=== PATIENT | male | born 1940 | race Caucasian/White ===

== ENCOUNTER 2021-09-16 08:01 | Inpatient (IN) | payer MEDICARE ==
[2021-09-16] MEDS ORDERED: Ondansetron PF 4 MG/2 ML Vial ONE (08:40)
[2021-09-16 09:46] LABS: Bacteria/HPF None Seen HPF (None Seen); Bilirubin Negative (Negative); Blood, Urine Trace (Negative); Clarity Clear (Clear); Glucose, Urine (Dipstick) Greater than 1000 mg/dL (Negative); Ketone, Urine 20 mg/dL (Negative); Leukocyte Negative Leu/uL (Negative); Nitrite Negative (Negative); Protein, Urine (Dipstick) Negative (Neg-Trace); RBC/HPF 0-3 HPF (0-3); Specific Gravity, Urine 1.015 (1.002-1.036); Squamous Epithelial None Seen HPF (0-3); Urobilinogen Normal mg/dL (Less than 2); WBC/HPF 0-3 HPF (0-3)
[2021-09-16 10:17] LABS: #Lymphocytes 0.7 thou/uL (1.20-3.40); #Monocytes 1.1 thou/uL (0.11-0.59); #Neutrophils 13.7 thou/uL (1.40-6.50); %Basophils 0.3 % (0.0-1.0); %Eosinophils 0.3 % (0.0-10.0); %Lymphocytes 4.4 % (21.0-51.0); %Monocytes 6.9 % (0.0-10.0); %Neutrophils 88.2 % (42.0-75.0); Mean Corpuscular HGB CONC 32.9 g/dL (32.0-36.0); Mean Corpuscular Hemoglobin 32.6 pg (27.0-31.0); Mean Corpuscular Volume 98.8 fL (78.0-98.0); Platelet Count 183 thou/uL (130-400); RBC Distribution Width 11.5 % (11.5-14.5); White Blood Cell (WBC) Count 15.6 thou/uL (4.8-10.8)
[2021-09-16 10:38] LABS: ALT (SGPT) 13 U/L (8-55); AST (SGOT) 16 U/L (5-34); Albumin 3.7 g/dL (3.4-4.8); Alkaline Phosphatase 56 U/L (40-110); Anion Gap 14 mmol/L (10-20); BUN (Urea Nitrogen) 15 mg/dL (8.4-25.7); Bilirubin, Total 0.9 mg/dL (0.2-1.2); CK (CPK) 175 U/L (30-200); Calc. Creatinine Clearance 0 mL/min (70-130); Carbon Dioxide 25 mmol/L (23-31); Chloride 103 mmol/L (98-107); Estimated GFR 77; Globulin 2.9 g/dL (2.4-3.5); Glucose 256 mg/dL (83-110); Lipase 7 U/L (8-78); Potassium 3.5 mmol/L (3.5-5.1); Protein, Total 6.6 g/dL (5.8-8.1); Sodium 138 mmol/L (136-145)
[2021-09-16 10:43] LABS: SARS-CoV-2 NAA Rapid Test DETECTED (NotDetected)
[2021-09-16] MEDS ORDERED: Morphine 4 MG/ML VIAL ONE (12:00)
[2021-09-16] MEDS ORDERED: Cefepime 2 GM VIAL ONE (12:00)
[2021-09-16] MEDS ORDERED: Dextrose 50% Abboject 50 ML SYRINGE SLOW IVP PRN (12:57)
[2021-09-16] MEDS ORDERED: Dextrose 5% in Water 1,000 ML IV PRN (12:57)
[2021-09-16] MEDS ORDERED: Vancomycin 1 GM/200 ML BAG ONE (13:28)
[2021-09-16] MEDS ORDERED: Lactated Ringer's 1,000 ML IV SCH ×3 (13:30→16:30)
[2021-09-16 13:41] LABS: Lactic Acid 2.4 mmol/L (0.5-2.2)
[2021-09-16] MEDS ORDERED: Diclofenac 1% 100 GM GEL TP PRN (13:55)
[2021-09-16 14:31] LABS: Amphetamine Not Detected (NotDetected); Barbiturates Screen Not Detected (NotDetected); Benzodiazepine Screen Not Detected (NotDetected); Cocaine Metabolite Screen Not Detected (NotDetected); Methadone Not Detected (NotDetected); Methamphetamine Not Detected (NotDetected); Opiate Screen Not Detected (NotDetected); Oxycodone Screen Not Detected (NotDetected); Phencyclidine (PCP) Not Detected (NotDetected); THC/Cannabinoid Screen Not Detected (NotDetected); Tricyclic Screen Not Detected (NotDetected)
[2021-09-16 15:09] LABS: Magnesium 1.3 mg/dL (1.6-2.6); Phosphorus 2.1 mg/dL (2.3-4.7)
[2021-09-16 16:29] VITALS: BMI 26.0
[2021-09-16] MEDS: metFORMIN 500 MG TAB PO SCH (17:49)
[2021-09-16] MEDS: HumaLOG 300 UNITS/3 ML VIAL SC PRN ×2 (17:49→20:54)
[2021-09-16] MEDS ORDERED: Magnesium 2 GM/50 ML(in water) 2 GM in Premix Bag 1 BAG IVPB SCH (18:00)
[2021-09-16] MEDS ORDERED: Potassium Phosphate 9 MMOL in Sodium Chloride 0.9% 100 ML IVPB SCH (18:30)
[2021-09-16 19:50] LABS: Lactic Acid 2.6 mmol/L (0.5-2.2)
[2021-09-16] MEDS: Trospium 20 MG TAB PO SCH (20:56)
[2021-09-17 04:52] LABS: #Lymphocytes 1.1 thou/uL (1.20-3.40); #Monocytes 1.3 thou/uL (0.11-0.59); #Neutrophils 11.3 thou/uL (1.40-6.50); %Eosinophils 0.2 % (0.0-10.0); %Monocytes 9.3 % (0.0-10.0); %Neutrophils 82.6 % (42.0-75.0); Hemoglobin 14.8 g/dL (14.0-18.0); Mean Corpuscular HGB CONC 32.4 g/dL (32.0-36.0); Mean Corpuscular Hemoglobin 32.5 pg (27.0-31.0); Mean Platelet Volume 10.6 fL (7.4-10.4); Platelet Count 152 thou/uL (130-400); RBC Distribution Width 11.8 % (11.5-14.5); Red Blood Cell (RBC) Count 4.54 mill/uL (4.70-6.10); White Blood Cell (WBC) Count 13.7 thou/uL (4.8-10.8)
[2021-09-17 05:10] LABS: Anion Gap 15 mmol/L (10-20); BUN (Urea Nitrogen) 11 mg/dL (8.4-25.7); Calc. Creatinine Clearance 84 mL/min (70-130); Calcium 9.1 mg/dL (7.8-10.44); Carbon Dioxide 23 mmol/L (23-31); Chloride 101 mmol/L (98-107); Estimated GFR 86; Glucose 220 mg/dL (83-110); Potassium 3.6 mmol/L (3.5-5.1); Sodium 135 mmol/L (136-145)
[2021-09-17] MEDS: HumaLOG 300 UNITS/3 ML VIAL SC PRN ×4 (05:32→21:00)
[2021-09-17 06:10] LABS: Magnesium 1.8 mg/dL (1.6-2.6); Phosphorus 2.3 mg/dL (2.3-4.7)
[2021-09-17] MEDS ORDERED: Insulin Glargine 30 UNITS/0.3 ML VIAL SC SCH ×2 (07:00→09:00)
[2021-09-17] MEDS: Hydrochlorothiazide 25 MG TAB PO SCH (08:48)
[2021-09-17] MEDS: metFORMIN 500 MG TAB PO SCH ×2 (08:48→16:51)
[2021-09-17] MEDS: Aspirin 81 mg Enteric Coated Tablet PO SCH (08:48)
[2021-09-17] MEDS: Losartan 25 MG TAB PO SCH (08:48)
[2021-09-17] MEDS: Polyethylene Glycol 3350 17 GM Packet PO SCH (08:48)
[2021-09-17] MEDS: Trospium 20 MG TAB PO SCH ×2 (08:48→20:59)
[2021-09-17] MEDS: Atorvastatin Calcium 20 MG TAB PO SCH (08:49)
[2021-09-17] MEDS: Cyanocobalamin (Vitamin B-12) 1,000 MCG TAB PO SCH (08:49)
[2021-09-17] MEDS: Multivit, Therapeutic 1 TAB PO SCH (08:49)
[2021-09-17] MEDS: Enoxaparin Sodium 40 MG/0.4 ML SYRINGE SC SCH (08:50)
[2021-09-17] MEDS: Lactated Ringer's 1,000 ML IV SCH ×5 (09:36→23:16)
[2021-09-17] MEDS: PHOS-NAK 1 PKT PACK PO SCH ×3 (09:36→21:00)
[2021-09-17] MEDS: Magnesium Oxide 400 MG TAB PO SCH ×2 (09:36→20:59)
[2021-09-17] MEDS ORDERED: TETANUS, DIPHTHERIA TOX,ADULT (TDVAX) 0.5 ML VIAL IM ONE (09:54)
[2021-09-17] MEDS ORDERED: Acetaminophen 325 MG/10.15 ML UDCUP PO PRN (10:08)
[2021-09-17] MEDS ORDERED: Amlodipine 10 MG TAB PO SCH (11:18)
[2021-09-17] MEDS ORDERED: hydrALAZINE 20 MG/ML VIAL SLOW IVP PRN (11:54)
[2021-09-17] MEDS ORDERED: hydrALAZINE 20 MG/ML VIAL SLOW IVP SCH (11:55)
[2021-09-18] MEDS: Lactated Ringer's 1,000 ML IV SCH ×4 (05:30→23:27)
[2021-09-18] MEDS: HumaLOG 300 UNITS/3 ML VIAL SC PRN ×4 (05:42→20:03)
[2021-09-18 05:53] LABS: Anion Gap 13 mmol/L (10-20); BUN (Urea Nitrogen) 12 mg/dL (8.4-25.7); Calc. Creatinine Clearance 90 mL/min (70-130); Calcium 8.9 mg/dL (7.8-10.44); Carbon Dioxide 28 mmol/L (23-31); Chloride 97 mmol/L (98-107); Estimated GFR 88; Glucose 199 mg/dL (83-110); Magnesium 1.7 mg/dL (1.6-2.6); Potassium 3.2 mmol/L (3.5-5.1); Sodium 135 mmol/L (136-145)
[2021-09-18 05:54] LABS: #Lymphocytes 1.5 thou/uL (1.20-3.40); #Monocytes 1.1 thou/uL (0.11-0.59); #Neutrophils 8.3 thou/uL (1.40-6.50); %Basophils 0.2 % (0.0-1.0); %Eosinophils 0.2 % (0.0-10.0); %Lymphocytes 13.8 % (21.0-51.0); %Monocytes 10.2 % (0.0-10.0); %Neutrophils 75.6 % (42.0-75.0); Hemoglobin 13.8 g/dL (14.0-18.0); Mean Corpuscular HGB CONC 34.4 g/dL (32.0-36.0); Mean Corpuscular Hemoglobin 33.3 pg (27.0-31.0); Mean Corpuscular Volume 96.7 fL (78.0-98.0); Mean Platelet Volume 9.8 fL (7.4-10.4); Phosphorus 2.9 mg/dL (2.3-4.7); Platelet Count 181 thou/uL (130-400); RBC Distribution Width 11.7 % (11.5-14.5); Red Blood Cell (RBC) Count 4.15 mill/uL (4.70-6.10)
[2021-09-18 05:55] LABS: Lactic Acid 1.5 mmol/L (0.5-2.2)
[2021-09-18] MEDS ORDERED: Amlodipine 10 MG TAB PO SCH ×2 (09:00)
[2021-09-18] MEDS ORDERED: Potassium Chloride 20 MEQ TAB PO SCH (09:00)
[2021-09-18] MEDS ORDERED: Amlodipine 5 MG TAB PO SCH (09:00)
[2021-09-18] MEDS: Magnesium Oxide 400 MG TAB PO SCH ×4 (09:45→20:02)
[2021-09-18] MEDS: Atorvastatin Calcium 20 MG TAB PO SCH (09:45)
[2021-09-18] MEDS: Enoxaparin Sodium 40 MG/0.4 ML SYRINGE SC SCH (09:45)
[2021-09-18] MEDS: PHOS-NAK 1 PKT PACK PO SCH ×3 (09:46→20:01)
[2021-09-18] MEDS: Polyethylene Glycol 3350 17 GM Packet PO SCH (09:46)
[2021-09-18] MEDS: Insulin Glargine 30 UNITS/0.3 ML VIAL SC SCH (09:46)
[2021-09-18] MEDS: metFORMIN 500 MG TAB PO SCH ×2 (09:46→17:00)
[2021-09-18] MEDS: Cyanocobalamin (Vitamin B-12) 1,000 MCG TAB PO SCH (09:47)
[2021-09-18] MEDS: Losartan 25 MG TAB PO SCH (09:47)
[2021-09-18] MEDS: Hydrochlorothiazide 25 MG TAB PO SCH (09:48)
[2021-09-18] MEDS: Aspirin 81 mg Enteric Coated Tablet PO SCH (09:48)
[2021-09-18] MEDS: Amlodipine 10 MG TAB PO SCH (09:48)
[2021-09-18] MEDS: Trospium 20 MG TAB PO SCH ×2 (09:48→20:02)
[2021-09-18] MEDS: Senokot S 8.6-50 MG TAB PO SCH ×2 (09:48→20:02)
[2021-09-18] MEDS: Multivit, Therapeutic 1 TAB PO SCH (09:48)
[2021-09-18] MEDS ORDERED: Melatonin 3 MG TAB PO PRN (23:06)
[2021-09-19 08:56] LABS: #Eosinphils 0.2 thou/uL (0.0-0.7); #Lymphocytes 1.6 thou/uL (1.20-3.40); #Neutrophils 5.3 thou/uL (1.40-6.50); %Basophils 0.4 % (0.0-1.0); %Eosinophils 1.9 % (0.0-10.0); %Lymphocytes 19.7 % (21.0-51.0); %Monocytes 11.9 % (0.0-10.0); %Neutrophils 66.1 % (42.0-75.0); Hemoglobin 13.4 g/dL (14.0-18.0); Mean Corpuscular HGB CONC 32.7 g/dL (32.0-36.0); Mean Corpuscular Hemoglobin 32.6 pg (27.0-31.0); Mean Corpuscular Volume 99.7 fL (78.0-98.0); Mean Platelet Volume 9.4 fL (7.4-10.4); Platelet Count 186 thou/uL (130-400); RBC Distribution Width 11.6 % (11.5-14.5); Red Blood Cell (RBC) Count 4.12 mill/uL (4.70-6.10)
[2021-09-19] MEDS ORDERED: Magnesium Oxide 400 MG TAB PO SCH (09:00)
[2021-09-19] MEDS: Insulin Glargine 30 UNITS/0.3 ML VIAL SC SCH (09:00)
[2021-09-19] MEDS ORDERED: Acetaminophen 325 MG TAB PO SCH (09:00)
[2021-09-19] MEDS ORDERED: Insulin Glargine 30 UNITS/0.3 ML VIAL SC SCH (09:09)
[2021-09-19 09:15] LABS: Magnesium 1.8 mg/dL (1.6-2.6); Phosphorus 3.1 mg/dL (2.3-4.7)
[2021-09-19 09:20] LABS: Anion Gap 13 mmol/L (10-20); BUN (Urea Nitrogen) 18 mg/dL (8.4-25.7); Calc. Creatinine Clearance 93 mL/min (70-130); Calcium 8.9 mg/dL (7.8-10.44); Carbon Dioxide 23 mmol/L (23-31); Chloride 102 mmol/L (98-107); Estimated GFR 88; Glucose 151 mg/dL (83-110); Potassium 3.7 mmol/L (3.5-5.1); Sodium 134 mmol/L (136-145)
[2021-09-19] MEDS: Multivit, Therapeutic 1 TAB PO SCH (09:22)
[2021-09-19] MEDS: Amlodipine 10 MG TAB PO SCH (09:22)
[2021-09-19] MEDS: Trospium 20 MG TAB PO SCH ×2 (09:23→22:22)
[2021-09-19] MEDS: metFORMIN 500 MG TAB PO SCH ×2 (09:23→17:31)
[2021-09-19] MEDS: Losartan 25 MG TAB PO SCH (09:23)
[2021-09-19] MEDS: Hydrochlorothiazide 25 MG TAB PO SCH (09:24)
[2021-09-19] MEDS: Magnesium Oxide 400 MG TAB PO SCH ×4 (09:24→22:22)
[2021-09-19] MEDS: Cyanocobalamin (Vitamin B-12) 1,000 MCG TAB PO SCH (09:24)
[2021-09-19] MEDS: Senokot S 8.6-50 MG TAB PO SCH ×2 (09:24→22:22)
[2021-09-19] MEDS: Aspirin 81 mg Enteric Coated Tablet PO SCH (09:24)
[2021-09-19] MEDS: Atorvastatin Calcium 20 MG TAB PO SCH ×2 (09:25→22:22)
[2021-09-19] MEDS: Polyethylene Glycol 3350 17 GM Packet PO SCH (09:26)
[2021-09-19] MEDS: Enoxaparin Sodium 40 MG/0.4 ML SYRINGE SC SCH ×2 (09:39→09:43)
[2021-09-19] MEDS: HumaLOG 300 UNITS/3 ML VIAL SC PRN (13:25)
[2021-09-19] MEDS: Acetaminophen 325 MG TAB PO PRN (22:34)
[2021-09-20 07:53] LABS: #Basophils 0.1 thou/uL (0.0-0.2); #Eosinphils 0.3 thou/uL (0.0-0.7); #Neutrophils 5.4 thou/uL (1.40-6.50); %Basophils 0.6 % (0.0-1.0); %Eosinophils 3.2 % (0.0-10.0); %Lymphocytes 22.6 % (21.0-51.0); %Monocytes 11.6 % (0.0-10.0); Hemoglobin 13.2 g/dL (14.0-18.0); Mean Corpuscular HGB CONC 33.6 g/dL (32.0-36.0); Mean Corpuscular Hemoglobin 32.9 pg (27.0-31.0); Mean Corpuscular Volume 97.9 fL (78.0-98.0); Mean Platelet Volume 9.3 fL (7.4-10.4); Platelet Count 201 thou/uL (130-400); RBC Distribution Width 11.5 % (11.5-14.5); Red Blood Cell (RBC) Count 4.01 mill/uL (4.70-6.10); White Blood Cell (WBC) Count 8.7 thou/uL (4.8-10.8)
[2021-09-20 08:12] LABS: Anion Gap 12 mmol/L (10-20); BUN (Urea Nitrogen) 22 mg/dL (8.4-25.7); Calc. Creatinine Clearance 83 mL/min (70-130); Calcium 9.1 mg/dL (7.8-10.44); Carbon Dioxide 28 mmol/L (23-31); Chloride 102 mmol/L (98-107); Estimated GFR 86; Glucose 110 mg/dL (83-110); Magnesium 1.8 mg/dL (1.6-2.6); Potassium 3.6 mmol/L (3.5-5.1); Sodium 138 mmol/L (136-145)
[2021-09-20] MEDS: metFORMIN 500 MG TAB PO SCH ×2 (09:44→16:50)
[2021-09-20] MEDS: Amlodipine 10 MG TAB PO SCH (09:44)
[2021-09-20] MEDS: Losartan 25 MG TAB PO SCH (09:44)
[2021-09-20] MEDS: Cyanocobalamin (Vitamin B-12) 1,000 MCG TAB PO SCH (09:45)
[2021-09-20] MEDS: Magnesium Oxide 400 MG TAB PO SCH (09:45)
[2021-09-20] MEDS: Senokot S 8.6-50 MG TAB PO SCH ×2 (09:46→21:30)
[2021-09-20] MEDS: Trospium 20 MG TAB PO SCH ×2 (09:46→21:30)
[2021-09-20] MEDS: Multivit, Therapeutic 1 TAB PO SCH (09:46)
[2021-09-20] MEDS: Enoxaparin Sodium 40 MG/0.4 ML SYRINGE SC SCH (09:47)
[2021-09-20] MEDS: Polyethylene Glycol 3350 17 GM Packet PO SCH (09:47)
[2021-09-20] MEDS: Hydrochlorothiazide 25 MG TAB PO SCH (09:47)
[2021-09-20] MEDS: Aspirin 81 mg Enteric Coated Tablet PO SCH (09:48)
[2021-09-20] MEDS: Atorvastatin Calcium 20 MG TAB PO SCH (21:30)
[2021-09-20] MEDS: HumaLOG 300 UNITS/3 ML VIAL SC PRN (21:30)
[2021-09-21] MEDS: Acetaminophen 325 MG TAB PO PRN (02:18)
[2021-09-21 07:02] LABS: #Eosinphils 0.2 thou/uL (0.0-0.7); #Lymphocytes 1.9 thou/uL (1.20-3.40); #Neutrophils 5.1 thou/uL (1.40-6.50); %Basophils 0.1 % (0.0-1.0); %Eosinophils 2.7 % (0.0-10.0); %Lymphocytes 22.8 % (21.0-51.0); %Neutrophils 62.5 % (42.0-75.0); Hemoglobin 13.4 g/dL (14.0-18.0); Mean Corpuscular HGB CONC 34.5 g/dL (32.0-36.0); Mean Corpuscular Hemoglobin 33.5 pg (27.0-31.0); Mean Corpuscular Volume 97.3 fL (78.0-98.0); Mean Platelet Volume 9.1 fL (7.4-10.4); Platelet Count 214 thou/uL (130-400); RBC Distribution Width 11.5 % (11.5-14.5); White Blood Cell (WBC) Count 8.1 thou/uL (4.8-10.8)
[2021-09-21 07:26] LABS: Anion Gap 12 mmol/L (10-20); BUN (Urea Nitrogen) 20 mg/dL (8.4-25.7); Calc. Creatinine Clearance 68 mL/min (70-130); Calcium 9.3 mg/dL (7.8-10.44); Carbon Dioxide 28 mmol/L (23-31); Chloride 102 mmol/L (98-107); Estimated GFR 68; Glucose 366 mg/dL (83-110); Magnesium 1.8 mg/dL (1.6-2.6); Potassium 3.8 mmol/L (3.5-5.1); Sodium 138 mmol/L (136-145)
[2021-09-21] MEDS ORDERED: Hydrochlorothiazide 25 MG TAB PO SCH (09:00)
[2021-09-21] MEDS ORDERED: Insulin Glargine 30 UNITS/0.3 ML VIAL SC SCH (09:00)
[2021-09-21] MEDS ORDERED: Magnesium Oxide 400 MG TAB PO SCH (09:00)
[2021-09-21] MEDS: Losartan 25 MG TAB PO SCH (09:39)
[2021-09-21] MEDS: metFORMIN 500 MG TAB PO SCH (09:40)
[2021-09-21] MEDS: Trospium 20 MG TAB PO SCH (09:40)
[2021-09-21] MEDS: Senokot S 8.6-50 MG TAB PO SCH (09:41)
[2021-09-21] MEDS: Multivit, Therapeutic 1 TAB PO SCH (09:41)
[2021-09-21] MEDS: Cyanocobalamin (Vitamin B-12) 1,000 MCG TAB PO SCH (09:41)
[2021-09-21] MEDS: Amlodipine 10 MG TAB PO SCH (09:41)
[2021-09-21] MEDS: Aspirin 81 mg Enteric Coated Tablet PO SCH (09:41)
[2021-09-21] MEDS: Enoxaparin Sodium 40 MG/0.4 ML SYRINGE SC SCH (09:42)
[2021-09-21] MEDS: Polyethylene Glycol 3350 17 GM Packet PO SCH (09:42)
[2021-09-21] MEDS ORDERED: Polyethylene Glycol 3350 17 GM Packet PO SCH ×2 (09:59→10:30)
[2021-09-21 11:59] VITALS: TEMP 98
[2021-09-21] MEDS: HumaLOG 300 UNITS/3 ML VIAL SC PRN (12:13)
[2021-09-21 12:26] VITALS: BP 156/102
[2021-09-22] MEDS ORDERED: Polyethylene Glycol 3350 17 GM Packet PO SCH (09:00)
== END 2021-09-21 13:54 | DRG 871 ==
LOC: ERS 08:01 → NEURO 14:22
PROVIDERS: ADMIT Student in an Organized Health Care Education/Training Program; ATTEND Family Medicine
PROC: 8E0ZXY6 Isolation (ICD-10-PCS; principal; 2021-09-16)
PROC: 3E03329 Introduction of Other Anti-infective into Peripheral Vein, Percutaneous Approach (ICD-10-PCS; 2021-09-16)
DX: A41.89 Other specified sepsis (principal); U07.1 COVID-19; S06.0X9A Concussion with loss of consciousness of unspecified duration, initial encounter; E11.9 Type 2 diabetes mellitus without complications; I10 Essential (primary) hypertension; I25.10 Atherosclerotic heart disease of native coronary artery without angina pectoris; N40.0 Benign prostatic hyperplasia without lower urinary tract symptoms; W19.XXXA Unspecified fall, initial encounter; E83.42 Hypomagnesemia; S01.01XA Laceration without foreign body of scalp, initial encounter; F01.50 Vascular dementia, unspecified severity, without behavioral disturbance, psychotic disturbance, mood disturbance, and anxiety; Z88.8 Allergy status to other drugs, medicaments and biological substances; Z88.1 Allergy status to other antibiotic agents; Z79.82 Long term (current) use of aspirin; Z79.899 Other long term (current) drug therapy; Z79.4 Long term (current) use of insulin; Z79.84 Long term (current) use of oral hypoglycemic drugs; Z90.49 Acquired absence of other specified parts of digestive tract
CPT/HCPCS: 12002; 36415; 36416; 70450; 70551; 71045; 72125; 80048; 80053; 80306; 81003; 81015; 82550; 82607; 83605; 83690; 83735; 84100; 84145; 84425; 84443; 84484; 85025; 87040; 90714; 93005; 93306; 96361; 96365; 96367; 96375; J0360; J0692; J1650; J1815; J2270; J2405; J3370; J3475; J3490; J7120; U0002

== ENCOUNTER 2022-03-16 22:06 | Observation (INO) | payer MEDICARE ==
[2022-03-16] MEDS ORDERED: Ondansetron PF 4 MG/2 ML Vial ONE (23:22)
[2022-03-17 00:01] LABS: #Lymphocytes 0.4 thou/uL (1.20-3.40); #Monocytes 0.7 thou/uL (0.11-0.59); %Basophils 0.3 % (0.0-1.0); %Eosinophils 0.1 % (0.0-10.0); %Lymphocytes 2.4 % (21.0-51.0); %Monocytes 4.6 % (0.0-10.0); %Neutrophils 92.7 % (42.0-75.0); Hemoglobin 14.3 g/dL (14.0-18.0); Mean Corpuscular HGB CONC 34.3 g/dL (32.0-36.0); Mean Corpuscular Hemoglobin 33.5 pg (27.0-31.0); Mean Corpuscular Volume 97.7 fl (78.0-98.0); Mean Platelet Volume 9.9 fL (7.4-10.4); Platelet Count 190 10x3/uL (130-400); RBC Distribution Width 11.8 % (11.5-14.5); Red Blood Cell (RBC) Count 4.27 mill/uL (4.70-6.10); White Blood Cell (WBC) Count 16.2 10x3/uL (4.8-10.8)
[2022-03-17 00:32] LABS: ALT (SGPT) 11 U/L (8-55); AST (SGOT) 12 U/L (5-34); Albumin 3.8 g/dL (3.4-4.8); Alkaline Phosphatase 54 U/L (40-110); Anion Gap 18 mmol/L (10-20); BUN (Urea Nitrogen) 42 mg/dL (8.4-25.7); Calc. Creatinine Clearance 0 mL/min (70-130); Calcium 9.3 mg/dL (7.8-10.44); Carbon Dioxide 22 mmol/L (23-31); Chloride 102 mmol/L (98-107); Estimated GFR 46; Globulin 2.9 g/dL (2.4-3.5); Glucose 180 mg/dL (83-110); Lipase 17 U/L (8-78); Potassium 3.7 mmol/L (3.5-5.1); Protein, Total 6.7 g/dL (5.8-8.1); Sodium 138 mmol/L (136-145)
[2022-03-17 01:02] LABS: Bilirubin Negative (Negative); Blood, Urine Negative (Negative); Clarity Clear (Clear); Glucose, Urine (Dipstick) Normal (Negative); Ketone, Urine Negative (Negative); Leukocyte Negative Leu/uL (Negative); Nitrite Negative (Negative); Protein, Urine (Dipstick) Negative (Neg-Trace); Urobilinogen Normal mg/dL (Less than 2)
[2022-03-17] MEDS ORDERED: Piperacillin/Tazobactam 4.5 GM VIAL ONE (01:43)
[2022-03-17] MEDS ORDERED: Ondansetron ODT 4 MG TAB PO PRN (03:36)
[2022-03-17] MEDS ORDERED: Senokot S 8.6-50 MG TAB PO PRN (03:36)
[2022-03-17] MEDS ORDERED: Acetaminophen 325 MG TAB PO PRN (03:36)
[2022-03-17] MEDS ORDERED: Benzonatate 100 MG CAP PO PRN (03:53)
[2022-03-17] MEDS ORDERED: Diclofenac 1% 100 GM GEL TP PRN (03:53)
[2022-03-17] MEDS ORDERED: Lactated Ringer's 1,000 ML IV SCH (04:00)
[2022-03-17] MEDS ORDERED: Dextrose 50% Abboject 50 ML SYRINGE SLOW IVP PRN (04:08)
[2022-03-17] MEDS ORDERED: HumaLOG 300 UNITS/3 ML VIAL SC PRN ×2 (04:08)
[2022-03-17] MEDS ORDERED: Dextrose 5% in Water 1,000 ML IV PRN (04:08)
[2022-03-17] MEDS ORDERED: MENTHOL TOP PRN (04:23)
[2022-03-17 06:05] VITALS: BMI 27.2
[2022-03-17 06:49] LABS: Lactic Acid 2.6 mmol/L (0.5-2.2)
[2022-03-17] MEDS: Losartan 25 MG TAB PO SCH (08:32)
[2022-03-17] MEDS: Lidocaine 5% Patch TD SCH (08:32)
[2022-03-17] MEDS: Polyethylene Glycol 3350 17 GM Packet PO SCH (08:32)
[2022-03-17] MEDS: Multivit, Therapeutic 1 TAB PO SCH (08:33)
[2022-03-17] MEDS: Oxybutynin 5 MG TAB PO SCH (08:33)
[2022-03-17] MEDS: Amlodipine 10 MG TAB PO SCH (08:33)
[2022-03-17] MEDS: Senokot S 8.6-50 MG TAB PO SCH ×2 (08:33→19:43)
[2022-03-17] MEDS: Cyanocobalamin (Vitamin B-12) 1,000 MCG TAB PO SCH (08:33)
[2022-03-17] MEDS: Insulin Glargine 30 UNITS/0.3 ML VIAL SC SCH (08:34)
[2022-03-17] MEDS: Aspirin 81 mg Enteric Coated Tablet PO SCH (08:34)
[2022-03-17] MEDS ORDERED: Aspirin 81 mg Enteric Coated Tablet PO SCH (09:00)
[2022-03-17] MEDS ORDERED: FLU VACC QS2022-23(65YR UP)/PF 240 MCG/0.7 ML SYRINGE IM ONE (14:00)
[2022-03-17] MEDS ORDERED: Iopamidol 370 76% 100 ML VIAL ONE (15:39)
[2022-03-17] MEDS ORDERED: Atorvastatin Calcium 20 MG TAB PO SCH (21:00)
[2022-03-17] MEDS ORDERED: Gabapentin 100 MG CAP PO PRN (21:00)
[2022-03-17] MEDS ORDERED: Transdermal Patch Removal TOP SCH (21:00)
[2022-03-18 06:12] LABS: #Basophils 0.1 thou/uL (0.0-0.2); #Eosinphils 0.2 thou/uL (0.0-0.7); #Lymphocytes 1.5 thou/uL (1.20-3.40); #Monocytes 0.9 thou/uL (0.11-0.59); #Neutrophils 4.7 thou/uL (1.40-6.50); %Monocytes 12.6 % (0.0-10.0); %Neutrophils 63.4 % (42.0-75.0); Hemoglobin 12.9 g/dL (14.0-18.0); Mean Corpuscular HGB CONC 34.3 g/dL (32.0-36.0); Mean Corpuscular Hemoglobin 33.3 pg (27.0-31.0); Mean Platelet Volume 9.3 fL (7.4-10.4); Platelet Count 176 10x3/uL (130-400); RBC Distribution Width 11.6 % (11.5-14.5); Red Blood Cell (RBC) Count 3.88 mill/uL (4.70-6.10); White Blood Cell (WBC) Count 7.4 10x3/uL (4.8-10.8)
[2022-03-18 06:39] LABS: Anion Gap 12 mmol/L (10-20); BUN (Urea Nitrogen) 28 mg/dL (8.4-25.7); Calc. Creatinine Clearance 64 mL/min (70-130); Calcium 8.2 mg/dL (7.8-10.44); Carbon Dioxide 25 mmol/L (23-31); Chloride 104 mmol/L (98-107); Estimated GFR 75; Glucose 81 mg/dL (83-110); Sodium 138 mmol/L (136-145)
[2022-03-18] MEDS: Multivit, Therapeutic 1 TAB PO SCH (08:55)
[2022-03-18] MEDS: Senokot S 8.6-50 MG TAB PO SCH (08:55)
[2022-03-18] MEDS: Aspirin 81 mg Enteric Coated Tablet PO SCH (08:55)
[2022-03-18] MEDS: Polyethylene Glycol 3350 17 GM Packet PO SCH (08:55)
[2022-03-18] MEDS: Cyanocobalamin (Vitamin B-12) 1,000 MCG TAB PO SCH (08:55)
[2022-03-18] MEDS: Lidocaine 5% Patch TD SCH ×2 (08:56→09:08)
[2022-03-18] MEDS: Oxybutynin 5 MG TAB PO SCH (08:56)
[2022-03-18] MEDS: Insulin Glargine 30 UNITS/0.3 ML VIAL SC SCH (08:57)
[2022-03-18] MEDS: Losartan 25 MG TAB PO SCH (08:58)
[2022-03-18] MEDS: Amlodipine 10 MG TAB PO SCH (08:58)
[2022-03-18] MEDS ORDERED: Potassium Chloride 20 MEQ TAB PO SCH (11:45)
[2022-03-18 15:15] VITALS: BP 108/74; TEMP 98.5
== END 2022-03-18 19:00 ==
LOC: ERS 22:06 → SURG A 03-17 03:30
PROVIDERS: ADMIT Family Medicine; ATTEND Family Medicine
DX: E86.0 Dehydration (principal); N17.9 Acute kidney failure, unspecified; B34.9 Viral infection, unspecified; K59.00 Constipation, unspecified; J94.8 Other specified pleural conditions; J98.11 Atelectasis; E11.9 Type 2 diabetes mellitus without complications; I10 Essential (primary) hypertension; E78.5 Hyperlipidemia, unspecified; F03.90 Unspecified dementia, unspecified severity, without behavioral disturbance, psychotic disturbance, mood disturbance, and anxiety; N40.0 Benign prostatic hyperplasia without lower urinary tract symptoms; I25.10 Atherosclerotic heart disease of native coronary artery without angina pectoris; N32.89 Other specified disorders of bladder; N20.0 Calculus of kidney; Z66 Do not resuscitate; Z79.4 Long term (current) use of insulin; Z79.82 Long term (current) use of aspirin; Z79.84 Long term (current) use of oral hypoglycemic drugs; Z79.899 Other long term (current) drug therapy; Z88.8 Allergy status to other drugs, medicaments and biological substances
CPT/HCPCS: 71045; 74177; 80048; 80053; 81003; 82962 ×2; 83605; 83690; 84145; 85025 ×2; 87040; 87086; 93005; 96361; 96365; 96366; 96372 ×2; 96375; 97116 ×2; 97139; 97530; 97535; 99285; G0378 ×3; 36415; 36416; J1650; J1815; J2405; J2543; Q9967

== ENCOUNTER 2022-08-05 16:55 | Emergency (ER) | payer MEDICARE ==
[2022-08-05] MEDS ORDERED: Acetaminophen 500 MG TAB ONE (19:16)
== END 2022-08-05 19:49 | disposition home or self-care (01) ==
LOC: ERS 16:55
DX: S01.01XA Laceration without foreign body of scalp, initial encounter (principal); I25.10 Atherosclerotic heart disease of native coronary artery without angina pectoris; E11.9 Type 2 diabetes mellitus without complications; E78.2 Mixed hyperlipidemia; I10 Essential (primary) hypertension; W18.30XA Fall on same level, unspecified, initial encounter
CPT/HCPCS: 70450; 72125

== ENCOUNTER 2022-10-01 19:57 | Inpatient (IN) | payer MEDICARE ==
[2022-10-01 20:49] LABS: #Basophils 0.1 thou/uL (0.0-0.2); #Eosinphils 0.1 thou/uL (0.0-0.7); #Monocytes 1.1 thou/uL (0.11-0.59); #Neutrophils 13.3 thou/uL (1.40-6.50); %Basophils 0.3 % (0.0-1.0); %Eosinophils 0.8 % (0.0-10.0); %Lymphocytes 7.5 % (21.0-51.0); %Monocytes 6.8 % (0.0-10.0); %Neutrophils 84.2 % (42.0-75.0); Hematocrit 40.2 % (42.0-52.0); Hemoglobin 13.9 g/dL (14.0-18.0); Mean Corpuscular HGB CONC 34.6 g/dL (32.0-36.0); Mean Corpuscular Hemoglobin 32.4 pg (27.0-31.0); Mean Corpuscular Volume 93.7 fl (78.0-98.0); Mean Platelet Volume 11.3 fL (7.4-10.4); Platelet Count 197 10x3/uL (130-400); RBC Distribution Width 12.8 % (11.5-14.5); Red Blood Cell (RBC) Count 4.29 mill/uL (4.70-6.10); White Blood Cell (WBC) Count 15.7 10x3/uL (4.8-10.8)
[2022-10-01 21:11] LABS: INR-International Normal Ratio 1.1; PTT 29.4 sec (22.9-36.1); Prothrombin Time 14.8 sec (12.0-14.7)
[2022-10-01 21:16] LABS: ALT (SGPT) 21 U/L (8-55); AST (SGOT) 28 U/L (5-34); Albumin 3.7 g/dL (3.4-4.8); Alkaline Phosphatase 56 U/L (40-110); Anion Gap 13 mmol/L (10-20); BUN (Urea Nitrogen) 14 mg/dL (8.4-25.7); Bilirubin, Total 0.8 mg/dL (0.2-1.2); Calc. Creatinine Clearance 0 mL/min (70-130); Calcium 8.9 mg/dL (7.8-10.44); Carbon Dioxide 23 mmol/L (23-31); Chloride 105 mmol/L (98-107); Estimated GFR 80; Globulin 3.2 g/dL (2.4-3.5); Glucose 145 mg/dL (83-110); Potassium 4.4 mmol/L (3.5-5.1); Protein, Total 6.9 g/dL (5.8-8.1); Sodium 137 mmol/L (136-145)
[2022-10-02] MEDS ORDERED: Glucagon 1 MG/ML KIT IM PRN (00:25)
[2022-10-02] MEDS ORDERED: Ondansetron ODT 4 MG TAB PO PRN (00:25)
[2022-10-02] MEDS ORDERED: Insulin Regular 300 UNITS/3 ML VIAL SC PRN (00:25)
[2022-10-02] MEDS ORDERED: Morphine 4 MG/ML VIAL SLOW IVP PRN (00:25)
[2022-10-02] MEDS ORDERED: Morphine 2 MG/ML VIAL SLOW IVP PRN (00:25)
[2022-10-02] MEDS ORDERED: Dextrose 5% in Water 1,000 ML IV PRN (00:25)
[2022-10-02] MEDS ORDERED: hydrALAZINE 20 MG/ML VIAL SLOW IVP PRN (00:25)
[2022-10-02] MEDS ORDERED: Dextrose 50% Abboject 50 ML SYRINGE SLOW IVP PRN (00:25)
[2022-10-02] MEDS ORDERED: Ipratropium/Albuterol 3 ML NEB NEB PRN (00:25)
[2022-10-02] MEDS ORDERED: Ondansetron PF 4 MG/2 ML Vial IVP PRN (00:25)
[2022-10-02] MEDS ORDERED: Ibuprofen 200 MG TAB PO PRN (00:30)
[2022-10-02] MEDS ORDERED: Sodium Chloride 0.9% 1,000 ML IV SCH (01:00)
[2022-10-02 04:57] LABS: #Basophils 0.1 thou/uL (0.0-0.2); #Eosinphils 0.4 thou/uL (0.0-0.7); %Basophils 0.5 % (0.0-1.0); %Eosinophils 2.9 % (0.0-10.0); %Lymphocytes 9.9 % (21.0-51.0); %Monocytes 8.2 % (0.0-10.0); %Neutrophils 78.2 % (42.0-75.0); Hematocrit 38.9 % (42.0-52.0); Hemoglobin 13.2 g/dL (14.0-18.0); Mean Corpuscular HGB CONC 33.9 g/dL (32.0-36.0); Mean Corpuscular Hemoglobin 32.2 pg (27.0-31.0); Mean Corpuscular Volume 94.9 fl (78.0-98.0); Mean Platelet Volume 10.8 fL (7.4-10.4); Platelet Count 178 10x3/uL (130-400); RBC Distribution Width 12.9 % (11.5-14.5); White Blood Cell (WBC) Count 12.8 10x3/uL (4.8-10.8)
[2022-10-02 05:18] LABS: Anion Gap 10 mmol/L (10-20); BUN (Urea Nitrogen) 12 mg/dL (8.4-25.7); Calc. Creatinine Clearance 80 mL/min (70-130); Calcium 8.7 mg/dL (7.8-10.44); Carbon Dioxide 24 mmol/L (23-31); Chloride 105 mmol/L (98-107); Estimated GFR 80; Glucose 128 mg/dL (83-110); Potassium 3.4 mmol/L (3.5-5.1); Sodium 136 mmol/L (136-145)
[2022-10-02] MEDS: Acetaminophen 325 MG TAB PO SCH ×4 (05:51→23:13)
[2022-10-02] MEDS: Acetaminophen/Codeine 30-300mg Tablet PO PRN ×2 (08:19→21:52)
[2022-10-02] MEDS: Famotidine 20 MG TAB PO SCH ×2 (08:20→21:40)
[2022-10-02] MEDS ORDERED: Polyethylene Glycol 3350 17 GM Packet PO SCH (09:00)
[2022-10-02] MEDS ORDERED: Senokot 8.6 MG TAB PO SCH (09:00)
[2022-10-02] MEDS ORDERED: Gabapentin 100 MG CAP PO PRN (09:14)
[2022-10-02] MEDS ORDERED: fentaNYL PF 100 MCG/2 ML SYRINGE ONE (12:45)
[2022-10-02] MEDS ORDERED: Sevoflurane 250 ML INH ANEST BOTTLE ONE (12:52)
[2022-10-02] MEDS ORDERED: Sodium Chloride 0.9% 100 ML ONE (13:00)
[2022-10-02] MEDS ORDERED: CEFAZOLIN 2 GM VIAL ONE (13:00)
[2022-10-02] MEDS ORDERED: Lidocaine 1% PF 5 ML VIAL ONE (13:19)
[2022-10-02] MEDS ORDERED: Rocuronium Bromide 10 MG/ML (10ML VIAL) ONE (13:19)
[2022-10-02] MEDS ORDERED: PROPOFOL 200 MG/20 ML VIAL ONE (13:19)
[2022-10-02] MEDS ORDERED: NEOSTIGMINE 3 MG/3 ML SYR 3 MG/3 ML SYRINGE ONE (13:19)
[2022-10-02] MEDS ORDERED: Ondansetron PF 4 MG/2 ML Vial ONE (13:19)
[2022-10-02] MEDS ORDERED: Glycopyrrolate 0.2 MG/ML 5 ML SYRINGE ONE (13:19)
[2022-10-02] MEDS ORDERED: PHENYLEPHRINE-NS 100 MCG/ML 10 ML SYRINGE ONE (13:19)
[2022-10-02 13:44] VITALS: BMI 32.7
[2022-10-02] MEDS ORDERED: Bupivacaine PF 0.5% 30 ML VIAL ONE (13:54)
[2022-10-02] MEDS ORDERED: Ondansetron HCl/PF 4 MG/2 ML Vial IVP PRN (14:15)
[2022-10-02] MEDS ORDERED: Promethazine HCl 25 MG/ML VIAL IM PRN (14:15)
[2022-10-02] MEDS ORDERED: Communication Order-Pharmacy FS SCH (14:30)
[2022-10-02 17:24] LABS: Bilirubin Negative (Negative); Blood, Urine Negative (Negative); Clarity Clear (Clear); Glucose, Urine (Dipstick) Normal (Negative); Ketone, Urine Trace mg/dL (Negative); Leukocyte Negative Leu/uL (Negative); Nitrite Negative (Negative); Protein, Urine (Dipstick) Negative (Neg-Trace); Specific Gravity, Urine 1.008 (1.002-1.036); Urobilinogen Normal mg/dL (Less than 2); pH, Urine 6.5 (5.0-9.0)
[2022-10-02 17:30] LABS: Bacteria/HPF None Seen HPF (None Seen); RBC/HPF None Seen HPF (0-3); Squamous Epithelial None Seen HPF (0-3); WBC/HPF None Seen HPF (0-3)
[2022-10-02] MEDS: Senokot S 8.6-50 MG TAB PO SCH (21:40)
[2022-10-02] MEDS: Atorvastatin Calcium 20 MG TAB PO SCH (21:40)
[2022-10-02] MEDS: Aspirin 81 mg Enteric Coated Tablet PO SCH (21:40)
[2022-10-02] MEDS: CEFAZOLIN 2 GM in Sodium Chloride 0.9% 100 ML IVPB SCH (21:41)
[2022-10-03] MEDS: CEFAZOLIN 2 GM in Sodium Chloride 0.9% 100 ML IVPB SCH (05:50)
[2022-10-03] MEDS: Acetaminophen 325 MG TAB PO SCH ×3 (05:50→18:22)
[2022-10-03] MEDS ORDERED: Potassium Chloride 40 MEQ in Premix Bag 1 BAG IVPB SCH (09:00)
[2022-10-03] MEDS ORDERED: Potassium Chloride 20 MEQ TAB PO SCH (09:00)
[2022-10-03] MEDS: Famotidine 20 MG TAB PO SCH ×2 (09:41→20:54)
[2022-10-03] MEDS: Oxybutynin ER 5 MG TAB PO SCH (09:41)
[2022-10-03] MEDS: FLUoxetine HCl 20 MG CAP PO SCH (09:41)
[2022-10-03] MEDS: Senokot S 8.6-50 MG TAB PO SCH ×2 (09:41→20:54)
[2022-10-03] MEDS: Aspirin 81 mg Enteric Coated Tablet PO SCH ×2 (09:41→20:53)
[2022-10-03] MEDS: Polyethylene Glycol 3350 17 GM Packet PO SCH (09:41)
[2022-10-03] MEDS: Cyanocobalamin (Vitamin B-12) 1,000 MCG TAB PO SCH (09:41)
[2022-10-03] MEDS: Multivit, Therapeutic 1 TAB PO SCH (09:42)
[2022-10-03] MEDS: Insulin Regular 300 UNITS/3 ML VIAL SC PRN ×2 (12:17→18:24)
[2022-10-03] MEDS: CeleCOXIB 100 MG CAP PO SCH (12:18)
[2022-10-03] MEDS: Atorvastatin Calcium 20 MG TAB PO SCH (20:53)
[2022-10-04] MEDS: Acetaminophen 325 MG TAB PO SCH ×4 (00:52→18:31)
[2022-10-04 06:21] LABS: #Basophils 0.1 thou/uL (0.0-0.2); #Eosinphils 0.7 thou/uL (0.0-0.7); #Neutrophils 7.8 thou/uL (1.40-6.50); %Basophils 0.5 % (0.0-1.0); %Eosinophils 6.3 % (0.0-10.0); %Lymphocytes 8.8 % (21.0-51.0); %Monocytes 9.4 % (0.0-10.0); %Neutrophils 74.8 % (42.0-75.0); Hematocrit 32.8 % (42.0-52.0); Hemoglobin 11.2 g/dL (14.0-18.0); Mean Corpuscular HGB CONC 34.1 g/dL (32.0-36.0); Mean Corpuscular Hemoglobin 32.3 pg (27.0-31.0); Mean Corpuscular Volume 94.5 fl (78.0-98.0); Mean Platelet Volume 11.6 fL (7.4-10.4); Platelet Count 155 10x3/uL (130-400); Red Blood Cell (RBC) Count 3.47 mill/uL (4.70-6.10); White Blood Cell (WBC) Count 10.4 10x3/uL (4.8-10.8)
[2022-10-04 07:12] LABS: ALT (SGPT) 12 U/L (8-55); AST (SGOT) 16 U/L (5-34); Albumin 3.2 g/dL (3.4-4.8); Alkaline Phosphatase 49 U/L (40-110); BUN (Urea Nitrogen) 21 mg/dL (8.4-25.7); Calc. Creatinine Clearance 80 mL/min (70-130); Calcium 8.5 mg/dL (7.8-10.44); Chloride 106 mmol/L (98-107); Estimated GFR 80; Globulin 2.6 g/dL (2.4-3.5); Glucose 216 mg/dL (83-110); Potassium 3.8 mmol/L (3.5-5.1); Protein, Total 5.8 g/dL (5.8-8.1); Sodium 135 mmol/L (136-145)
[2022-10-04] MEDS ORDERED: fentaNYL 50 mcg/mL 1 mL Vial ONE (07:13)
[2022-10-04] MEDS: CeleCOXIB 100 MG CAP PO SCH (08:45)
[2022-10-04] MEDS: Cyanocobalamin (Vitamin B-12) 1,000 MCG TAB PO SCH (08:46)
[2022-10-04] MEDS: Aspirin 81 mg Enteric Coated Tablet PO SCH ×2 (08:46→20:56)
[2022-10-04] MEDS: Polyethylene Glycol 3350 17 GM Packet PO SCH (08:48)
[2022-10-04] MEDS: Losartan 25 MG TAB PO SCH (08:57)
[2022-10-04] MEDS ORDERED: Non-Formulary Item 1 EACH (Losartan Potassium [Losartan Potassium] 100 MG Tablet) PO SCH (09:00)
[2022-10-04] MEDS: Multivit, Therapeutic 1 TAB PO SCH (09:53)
[2022-10-04] MEDS: FLUoxetine HCl 20 MG CAP PO SCH (09:53)
[2022-10-04] MEDS: Oxybutynin ER 5 MG TAB PO SCH (09:53)
[2022-10-04] MEDS: Famotidine 20 MG TAB PO SCH ×2 (09:53→20:56)
[2022-10-04] MEDS: Senokot S 8.6-50 MG TAB PO SCH ×2 (09:54→20:56)
[2022-10-04 09:55] LABS: Anion Gap 13 mmol/L (10-20); Bilirubin, Total 0.6 mg/dL (0.2-1.2); Carbon Dioxide 21 mmol/L (23-31)
[2022-10-04] MEDS: Insulin Regular 300 UNITS/3 ML VIAL SC PRN ×2 (13:32→18:28)
[2022-10-04] MEDS: Atorvastatin Calcium 20 MG TAB PO SCH (20:56)
[2022-10-05] MEDS: Acetaminophen 325 MG TAB PO SCH ×5 (00:09→22:12)
[2022-10-05] MEDS: Insulin Glargine 30 UNITS/0.3 ML VIAL SC SCH (09:22)
[2022-10-05] MEDS: Multivit, Therapeutic 1 TAB PO SCH ×2 (09:23→09:42)
[2022-10-05] MEDS: FLUoxetine HCl 20 MG CAP PO SCH ×2 (09:23→09:43)
[2022-10-05] MEDS: Famotidine 20 MG TAB PO SCH ×3 (09:23→19:54)
[2022-10-05] MEDS: Aspirin 81 mg Enteric Coated Tablet PO SCH ×2 (09:23→19:54)
[2022-10-05] MEDS: Losartan 25 MG TAB PO SCH (09:23)
[2022-10-05] MEDS: Oxybutynin ER 5 MG TAB PO SCH (09:24)
[2022-10-05] MEDS: CeleCOXIB 100 MG CAP PO SCH ×2 (09:25→09:41)
[2022-10-05] MEDS: Cyanocobalamin (Vitamin B-12) 1,000 MCG TAB PO SCH ×2 (09:29→09:43)
[2022-10-05] MEDS: Polyethylene Glycol 3350 17 GM Packet PO SCH (09:42)
[2022-10-05] MEDS: Senokot S 8.6-50 MG TAB PO SCH ×2 (09:42→19:55)
[2022-10-05] MEDS: Atorvastatin Calcium 20 MG TAB PO SCH (19:54)
[2022-10-06] MEDS: Acetaminophen 325 MG TAB PO SCH (05:40)
[2022-10-06 08:15] VITALS: BP 166/91; TEMP 98.2
[2022-10-06] MEDS ORDERED: Lactated Ringer's 500 ML IV SCH (08:15)
[2022-10-06] MEDS: Aspirin 81 mg Enteric Coated Tablet PO SCH (09:11)
[2022-10-06] MEDS: Losartan 25 MG TAB PO SCH (09:11)
[2022-10-06] MEDS: Insulin Glargine 30 UNITS/0.3 ML VIAL SC SCH (09:11)
[2022-10-06] MEDS: Oxybutynin ER 5 MG TAB PO SCH (09:42)
[2022-10-06] MEDS: Cyanocobalamin (Vitamin B-12) 1,000 MCG TAB PO SCH (09:42)
[2022-10-06] MEDS: Senokot S 8.6-50 MG TAB PO SCH (09:42)
[2022-10-06] MEDS: Polyethylene Glycol 3350 17 GM Packet PO SCH (09:42)
[2022-10-06] MEDS: Multivit, Therapeutic 1 TAB PO SCH (09:42)
[2022-10-06] MEDS: FLUoxetine HCl 20 MG CAP PO SCH (09:42)
[2022-10-06] MEDS: Famotidine 20 MG TAB PO SCH (09:42)
== END 2022-10-06 09:30 | DRG 482 ==
LOC: ERS 19:57 → SURG A 23:27
PROVIDERS: ADMIT Surgery; ATTEND Surgery
PROC: 0QH734Z Insertion of Internal Fixation Device into Left Upper Femur, Percutaneous Approach (ICD-10-PCS; principal; 2022-10-02)
DX: S72.012A Unspecified intracapsular fracture of left femur, initial encounter for closed fracture (principal); W18.30XA Fall on same level, unspecified, initial encounter; N40.0 Benign prostatic hyperplasia without lower urinary tract symptoms; I25.10 Atherosclerotic heart disease of native coronary artery without angina pectoris; E11.9 Type 2 diabetes mellitus without complications; E78.2 Mixed hyperlipidemia; I10 Essential (primary) hypertension; Z88.8 Allergy status to other drugs, medicaments and biological substances; Z79.82 Long term (current) use of aspirin; Z79.899 Other long term (current) drug therapy; Z79.4 Long term (current) use of insulin
CPT/HCPCS: 36415; 36416; 70450; 71045; 80048; 80053; 81003; 83735; 85025; 85610; 85730; 86850; 86900; 86901; 93005; C1713; C1769; J1815; J2405; J2704; J3010; J3490; J7050; S0020

== ENCOUNTER 2022-10-12 13:12 | Inpatient (IN) | payer MEDICARE ==
[2022-10-12 14:20] LABS: Actual Bicarbonate (HCO3v) 19.2 mEq/L (22-28); Analyzer IN Cardio ER; Base Excess -4.2 mEq/L (-2.0 to +3.0); Calcium, Ionized (venous) 1.14 mmol/L (1.16-1.32); Chloride (VBG) 105 mmol/L (98-106); Hematocrit-VBG 38 % (42.0-52.0); Hemoglobin (Hb) 12.8 g/dL (12.6-17.4); Potassium (VBG) 4.29 mmol/L (3.70-5.30); pH (venous) 7.419 (7.32-7.43)
[2022-10-12 14:30] LABS: #Basophils 0.1 thou/uL (0.0-0.2); #Monocytes 0.6 thou/uL (0.11-0.59); #Neutrophils 21.8 thou/uL (1.40-6.50); %Basophils 0.2 % (0.0-1.0); %Eosinophils 0.1 % (0.0-10.0); %Monocytes 2.8 % (0.0-10.0); %Neutrophils 95.3 % (42.0-75.0); Hematocrit 34.3 % (42.0-52.0); Hemoglobin 11.3 g/dL (14.0-18.0); Mean Corpuscular HGB CONC 32.9 g/dL (32.0-36.0); Mean Corpuscular Hemoglobin 32.1 pg (27.0-31.0); Mean Corpuscular Volume 97.4 fl (78.0-98.0); Mean Platelet Volume 11.1 fL (7.4-10.4); Platelet Count 270 10x3/uL (130-400); RBC Distribution Width 13.6 % (11.5-14.5); Red Blood Cell (RBC) Count 3.52 mill/uL (4.70-6.10); White Blood Cell (WBC) Count 22.9 10x3/uL (4.8-10.8)
[2022-10-12 14:38] LABS: Bilirubin Negative (Negative); Blood, Urine Large (Negative); Glucose, Urine (Dipstick) 500 mg/dL (Negative); Ketone, Urine Trace mg/dL (Negative); Leukocyte Moderate (Negative); Protein, Urine (Dipstick) 100 mg/dL (Neg-Trace); Specific Gravity, Urine 1.025 (1.005-1.030)
[2022-10-12 14:45] LABS: Clarity Cloudy (Clear); Nitrite Unable to Interpret (Negative)
[2022-10-12 14:49] LABS: Amphetamine Not Detected (NotDetected); Barbiturates Screen Not Detected (NotDetected); Benzodiazepine Screen Not Detected (NotDetected); Cocaine Metabolite Screen Not Detected (NotDetected); Methadone Not Detected (NotDetected); Methamphetamine Not Detected (NotDetected); Opiate Screen Detected (NotDetected); Oxycodone Screen Not Detected (NotDetected); Phencyclidine (PCP) Not Detected (NotDetected); THC/Cannabinoid Screen Not Detected (NotDetected); Tricyclic Screen Not Detected (NotDetected)
[2022-10-12 14:54] LABS: CAUTI Indications for Culture Alt mental st,lethar; WBC/HPF Greater than 50 HPF (0-3)
[2022-10-12 14:55] LABS: Acetaminophen Less than 10 mcg/mL (10.0-30.0); Alcohol Less than 10.0 mg/dL (Less than 10); Salicylate Less than 8.0 mg/dL (15.0-30.0)
[2022-10-12 14:56] LABS: Bacteria/HPF 4+ HPF (None Seen); Squamous Epithelial 0-3 HPF (0-3); Yeast-Budding None Seen HPF (None Seen)
[2022-10-12 14:56] LABS: ALT (SGPT) 21 U/L (8-55); AST (SGOT) 20 U/L (5-34); Albumin 3.3 g/dL (3.4-4.8); Alkaline Phosphatase 74 U/L (40-110); Anion Gap 13 mmol/L (10-20); BUN (Urea Nitrogen) 37 mg/dL (8.4-25.7); Calc. Creatinine Clearance 0 mL/min (70-130); Calcium 9.1 mg/dL (7.8-10.44); Carbon Dioxide 21 mmol/L (23-31); Chloride 106 mmol/L (98-107); Estimated GFR 36; Globulin 2.8 g/dL (2.4-3.5); Potassium 4.4 mmol/L (3.5-5.1); Protein, Total 6.1 g/dL (5.8-8.1); Sodium 136 mmol/L (136-145)
[2022-10-12 14:57] LABS: Urine Culture Reflex Yes Yes
[2022-10-12 14:58] LABS: Troponin I Less than 0.010 ng/mL (< 0.028)
[2022-10-12] MEDS ORDERED: cefTRIAXone (ROCEPHIN) 2 GM VIAL ONE (14:59)
[2022-10-12 15:10] LABS: Glucose 484 mg/dL (83-110)
[2022-10-12] MEDS ORDERED: Vancomycin 1 GM/200 ML (FROZEN) BAG ONE (15:47)
[2022-10-12] MEDS ORDERED: Dextrose 5% in Water 1,000 ML IV PRN (17:43)
[2022-10-12] MEDS ORDERED: Glucagon 1 MG/ML KIT IM PRN (17:43)
[2022-10-12] MEDS ORDERED: Dextrose 50% Abboject 50 ML SYRINGE SLOW IVP PRN (17:43)
[2022-10-12 19:41] LABS: Lactic Acid 2.3 mmol/L (0.5-2.2)
[2022-10-12 19:48] VITALS: BMI 34.9
[2022-10-12] MEDS ORDERED: ACETAMINOPHEN 650 MG PO PRN (20:26)
[2022-10-12] MEDS ORDERED: Gabapentin 100 MG CAP PO PRN (20:26)
[2022-10-12] MEDS ORDERED: Acetaminophen/Codeine 30-300mg Tablet PO PRN (20:26)
[2022-10-12] MEDS ORDERED: Ondansetron ODT 4 MG TAB PO PRN (20:26)
[2022-10-12] MEDS ORDERED: Diclofenac 1% 100 GM Topical GEL TP PRN (20:26)
[2022-10-12] MEDS ORDERED: DULAGLUTIDE 1.5 MG/0.5 ML SC SCH (20:30)
[2022-10-12] MEDS: Lactated Ringer's 1,000 ML IV SCH (21:00)
[2022-10-12] MEDS: Atorvastatin Calcium 20 MG TAB PO SCH (21:01)
[2022-10-12] MEDS: Senokot S 8.6-50 MG TAB PO SCH (21:01)
[2022-10-12] MEDS: Famotidine 20 MG TAB PO SCH (21:01)
[2022-10-12] MEDS: Aspirin 81 mg Enteric Coated Tablet PO SCH (21:02)
[2022-10-13] MEDS: Lactated Ringer's 1,000 ML IV SCH ×3 (04:32→20:20)
[2022-10-13] MEDS: HumaLOG 300 UNITS/3 ML VIAL SC PRN (04:43)
[2022-10-13] MEDS ORDERED: Vancomycin 1 GM in Premix Bag 1 BAG IVPB SCH (08:00)
[2022-10-13] MEDS: Insulin Glargine 30 UNITS/0.3 ML VIAL SC SCH (08:52)
[2022-10-13] MEDS: Cefepime 2 GM in Sodium Chloride 0.9% 100 ML IVPB SCH ×3 (08:52→20:17)
[2022-10-13] MEDS ORDERED: Amlodipine 5 MG TAB PO SCH (09:00)
[2022-10-13] MEDS: Polyethylene Glycol 3350 17 GM Packet PO SCH (10:33)
[2022-10-13] MEDS: FLUoxetine HCl 20 MG CAP PO SCH (10:34)
[2022-10-13] MEDS: Losartan 25 MG TAB PO SCH (10:34)
[2022-10-13] MEDS: Aspirin 81 mg Enteric Coated Tablet PO SCH ×2 (10:35→20:17)
[2022-10-13] MEDS: Cyanocobalamin (Vitamin B-12) 1,000 MCG TAB PO SCH (10:42)
[2022-10-13] MEDS: Senokot S 8.6-50 MG TAB PO SCH ×2 (10:42→20:19)
[2022-10-13 12:21] LABS: #Basophils 0.1 thou/uL (0.0-0.2); #Eosinphils 0.3 thou/uL (0.0-0.7); #Monocytes 1.2 thou/uL (0.11-0.59); %Basophils 0.4 % (0.0-1.0); %Eosinophils 1.6 % (0.0-10.0); %Lymphocytes 6.5 % (21.0-51.0); Hemoglobin 10.3 g/dL (14.0-18.0); Mean Corpuscular HGB CONC 33.2 g/dL (32.0-36.0); Mean Corpuscular Hemoglobin 32.4 pg (27.0-31.0); Mean Corpuscular Volume 97.5 fl (78.0-98.0); Mean Platelet Volume 10.9 fL (7.4-10.4); Platelet Count 213 10x3/uL (130-400); RBC Distribution Width 13.8 % (11.5-14.5); Red Blood Cell (RBC) Count 3.18 mill/uL (4.70-6.10)
[2022-10-13 12:55] LABS: Anion Gap 9 mmol/L (10-20); BUN (Urea Nitrogen) 26 mg/dL (8.4-25.7); Calc. Creatinine Clearance 78 mL/min (70-130); Calcium 8.9 mg/dL (7.8-10.44); Carbon Dioxide 21 mmol/L (23-31); Chloride 112 mmol/L (98-107); Estimated GFR 85; Glucose 194 mg/dL (83-110); Potassium 3.5 mmol/L (3.5-5.1); Sodium 138 mmol/L (136-145)
[2022-10-13] MEDS ORDERED: VANCOMYCIN 1.25 GM/250 ML BAG 1.25 GM in Premix Bag 1 BAG IVPB SCH (15:00)
[2022-10-13] MEDS: Acetaminophen 325 MG TAB PO PRN (20:17)
[2022-10-13] MEDS: Famotidine 20 MG TAB PO SCH (20:17)
[2022-10-13] MEDS: Atorvastatin Calcium 20 MG TAB PO SCH (20:17)
[2022-10-14] MEDS: Lactated Ringer's 1,000 ML IV SCH ×3 (05:18→20:47)
[2022-10-14] MEDS: FLUoxetine HCl 20 MG CAP PO SCH (08:55)
[2022-10-14] MEDS: Cefepime 2 GM in Sodium Chloride 0.9% 100 ML IVPB SCH ×2 (08:55→20:44)
[2022-10-14] MEDS: Cyanocobalamin (Vitamin B-12) 1,000 MCG TAB PO SCH (08:56)
[2022-10-14] MEDS: Losartan 25 MG TAB PO SCH (08:58)
[2022-10-14] MEDS: Insulin Glargine 30 UNITS/0.3 ML VIAL SC SCH (08:59)
[2022-10-14] MEDS: Aspirin 81 mg Enteric Coated Tablet PO SCH ×2 (08:59→20:44)
[2022-10-14] MEDS ORDERED: Amlodipine 10 MG TAB PO SCH ×2 (09:00)
[2022-10-14] MEDS: Polyethylene Glycol 3350 17 GM Packet PO SCH (09:00)
[2022-10-14] MEDS: Senokot S 8.6-50 MG TAB PO SCH ×2 (09:00→20:45)
[2022-10-14 10:16] LABS: #Eosinphils 0.3 thou/uL (0.0-0.7); #Neutrophils 12.1 thou/uL (1.40-6.50); %Basophils 0.2 % (0.0-1.0); %Eosinophils 1.8 % (0.0-10.0); %Monocytes 6.5 % (0.0-10.0); Hemoglobin 10.6 g/dL (14.0-18.0); Mean Corpuscular HGB CONC 33.1 g/dL (32.0-36.0); Mean Corpuscular Hemoglobin 32.1 pg (27.0-31.0); Mean Platelet Volume 11.2 fL (7.4-10.4); Platelet Count 223 10x3/uL (130-400); RBC Distribution Width 13.2 % (11.5-14.5); White Blood Cell (WBC) Count 14.7 10x3/uL (4.8-10.8)
[2022-10-14 10:44] LABS: Anion Gap 11 mmol/L (10-20); BUN (Urea Nitrogen) 18 mg/dL (8.4-25.7); Calc. Creatinine Clearance 88 mL/min (70-130); Calcium 8.5 mg/dL (7.8-10.44); Carbon Dioxide 22 mmol/L (23-31); Chloride 107 mmol/L (98-107); Estimated GFR 88; Glucose 166 mg/dL (83-110); Potassium 3.7 mmol/L (3.5-5.1); Sodium 136 mmol/L (136-145)
[2022-10-14] MEDS ORDERED: Potassium Chloride 20 MEQ TAB PO SCH (11:15)
[2022-10-14] MEDS: Acetaminophen 325 MG TAB PO PRN (20:44)
[2022-10-14] MEDS: Famotidine 20 MG TAB PO SCH (20:44)
[2022-10-14] MEDS: Atorvastatin Calcium 20 MG TAB PO SCH (20:44)
[2022-10-15 06:42] LABS: #Eosinphils 0.2 thou/uL (0.0-0.7); #Monocytes 0.9 thou/uL (0.11-0.59); #Neutrophils 8.3 thou/uL (1.40-6.50); %Basophils 0.3 % (0.0-1.0); %Eosinophils 1.5 % (0.0-10.0); %Lymphocytes 12.6 % (21.0-51.0); %Monocytes 8.3 % (0.0-10.0); %Neutrophils 76.8 % (42.0-75.0); Hematocrit 31.9 % (42.0-52.0); Hemoglobin 10.8 g/dL (14.0-18.0); Mean Corpuscular HGB CONC 33.9 g/dL (32.0-36.0); Mean Corpuscular Volume 94.7 fl (78.0-98.0); Mean Platelet Volume 11.1 fL (7.4-10.4); Platelet Count 231 10x3/uL (130-400); RBC Distribution Width 12.8 % (11.5-14.5); Red Blood Cell (RBC) Count 3.37 mill/uL (4.70-6.10); White Blood Cell (WBC) Count 10.8 10x3/uL (4.8-10.8)
[2022-10-15 07:06] LABS: Anion Gap 11 mmol/L (10-20); BUN (Urea Nitrogen) 15 mg/dL (8.4-25.7); Calc. Creatinine Clearance 88 mL/min (70-130); Calcium 8.7 mg/dL (7.8-10.44); Carbon Dioxide 25 mmol/L (23-31); Chloride 104 mmol/L (98-107); Estimated GFR 88; Glucose 144 mg/dL (83-110); Potassium 3.5 mmol/L (3.5-5.1); Sodium 136 mmol/L (136-145)
[2022-10-15] MEDS: FLUoxetine HCl 20 MG CAP PO SCH (08:08)
[2022-10-15] MEDS: Amlodipine 10 MG TAB PO SCH (08:09)
[2022-10-15] MEDS: Losartan 25 MG TAB PO SCH (08:09)
[2022-10-15] MEDS: Cyanocobalamin (Vitamin B-12) 1,000 MCG TAB PO SCH (08:10)
[2022-10-15] MEDS: Aspirin 81 mg Enteric Coated Tablet PO SCH ×2 (08:10→20:10)
[2022-10-15] MEDS: Insulin Glargine 30 UNITS/0.3 ML VIAL SC SCH (08:10)
[2022-10-15] MEDS: Senokot S 8.6-50 MG TAB PO SCH ×2 (08:11→21:29)
[2022-10-15] MEDS: Polyethylene Glycol 3350 17 GM Packet PO SCH (08:11)
[2022-10-15] MEDS ORDERED: Potassium Chloride 20 MEQ TAB PO SCH (09:43)
[2022-10-15] MEDS: Cefepime 2 GM in Sodium Chloride 0.9% 100 ML IVPB SCH (09:50)
[2022-10-15] MEDS ORDERED: Ciprofloxacin 500 MG TAB PO SCH (11:30)
[2022-10-15] MEDS: HumaLOG 300 UNITS/3 ML VIAL SC PRN ×2 (13:40→17:35)
[2022-10-15] MEDS: Famotidine 20 MG TAB PO SCH (20:10)
[2022-10-15] MEDS: Atorvastatin Calcium 20 MG TAB PO SCH (20:10)
[2022-10-15] MEDS: Ciprofloxacin 500 MG TAB PO SCH (20:10)
[2022-10-15] MEDS: Lactated Ringer's 1,000 ML IV SCH (23:05)
[2022-10-16] MEDS: HumaLOG 300 UNITS/3 ML VIAL SC PRN ×4 (05:10→21:34)
[2022-10-16 06:29] LABS: #Eosinphils 0.1 thou/uL (0.0-0.7); #Monocytes 1.1 thou/uL (0.11-0.59); #Neutrophils 8.4 thou/uL (1.40-6.50); %Basophils 0.3 % (0.0-1.0); %Eosinophils 1.1 % (0.0-10.0); %Lymphocytes 12.8 % (21.0-51.0); %Monocytes 10.1 % (0.0-10.0); %Neutrophils 75.2 % (42.0-75.0); Hemoglobin 12.5 g/dL (14.0-18.0); Mean Corpuscular HGB CONC 34.7 g/dL (32.0-36.0); Mean Corpuscular Hemoglobin 32.4 pg (27.0-31.0); Mean Corpuscular Volume 93.3 fl (78.0-98.0); Platelet Count 275 10x3/uL (130-400); RBC Distribution Width 12.6 % (11.5-14.5); Red Blood Cell (RBC) Count 3.86 mill/uL (4.70-6.10); White Blood Cell (WBC) Count 11.1 10x3/uL (4.8-10.8)
[2022-10-16 07:04] LABS: Anion Gap 10 mmol/L (10-20); BUN (Urea Nitrogen) 18 mg/dL (8.4-25.7); Calc. Creatinine Clearance 76 mL/min (70-130); Calcium 8.9 mg/dL (7.8-10.44); Carbon Dioxide 23 mmol/L (23-31); Chloride 104 mmol/L (98-107); Estimated GFR 85; Glucose 147 mg/dL (83-110); Potassium 3.8 mmol/L (3.5-5.1); Sodium 133 mmol/L (136-145)
[2022-10-16] MEDS: Losartan 25 MG TAB PO SCH (08:52)
[2022-10-16] MEDS: FLUoxetine HCl 20 MG CAP PO SCH (08:53)
[2022-10-16] MEDS: Insulin Glargine 30 UNITS/0.3 ML VIAL SC SCH (08:53)
[2022-10-16] MEDS: Aspirin 81 mg Enteric Coated Tablet PO SCH ×2 (08:53→21:33)
[2022-10-16] MEDS: Amlodipine 10 MG TAB PO SCH (08:53)
[2022-10-16] MEDS: Ciprofloxacin 500 MG TAB PO SCH ×2 (08:54→21:32)
[2022-10-16] MEDS: Polyethylene Glycol 3350 17 GM Packet PO SCH (08:54)
[2022-10-16] MEDS: Cyanocobalamin (Vitamin B-12) 1,000 MCG TAB PO SCH (08:54)
[2022-10-16] MEDS: Senokot S 8.6-50 MG TAB PO SCH ×2 (08:55→21:32)
[2022-10-16] MEDS ORDERED: Tamsulosin HCl 0.4 MG CAP PO SCH (10:00)
[2022-10-16] MEDS ORDERED: Insulin Glargine 30 UNITS/0.3 ML VIAL SC SCH (13:35)
[2022-10-16] MEDS: Famotidine 20 MG TAB PO SCH (21:32)
[2022-10-16] MEDS: Atorvastatin Calcium 20 MG TAB PO SCH (21:33)
[2022-10-16] MEDS: Acetaminophen 325 MG TAB PO PRN (21:33)
[2022-10-17] MEDS: Polyethylene Glycol 3350 17 GM Packet PO SCH (08:18)
[2022-10-17] MEDS: Insulin Glargine 30 UNITS/0.3 ML VIAL SC SCH (08:19)
[2022-10-17] MEDS: Cyanocobalamin (Vitamin B-12) 1,000 MCG TAB PO SCH (08:20)
[2022-10-17] MEDS: Losartan 25 MG TAB PO SCH (08:20)
[2022-10-17] MEDS: Senokot S 8.6-50 MG TAB PO SCH ×2 (08:20→21:20)
[2022-10-17] MEDS: Tamsulosin HCl 0.4 MG CAP PO SCH (08:20)
[2022-10-17] MEDS: FLUoxetine HCl 20 MG CAP PO SCH (08:20)
[2022-10-17] MEDS: Ciprofloxacin 500 MG TAB PO SCH ×2 (08:20→21:20)
[2022-10-17] MEDS: Aspirin 81 mg Enteric Coated Tablet PO SCH ×2 (08:21→21:19)
[2022-10-17] MEDS: Amlodipine 10 MG TAB PO SCH (08:21)
[2022-10-17 11:18] LABS: #Eosinphils 0.2 thou/uL (0.0-0.7); #Monocytes 1.1 thou/uL (0.11-0.59); #Neutrophils 6.6 thou/uL (1.40-6.50); %Basophils 0.3 % (0.0-1.0); %Eosinophils 2.2 % (0.0-10.0); %Lymphocytes 13.1 % (21.0-51.0); %Monocytes 11.6 % (0.0-10.0); %Neutrophils 72.4 % (42.0-75.0); Hematocrit 33.9 % (42.0-52.0); Hemoglobin 11.5 g/dL (14.0-18.0); Mean Corpuscular HGB CONC 33.9 g/dL (32.0-36.0); Mean Corpuscular Volume 94.4 fl (78.0-98.0); Mean Platelet Volume 10.7 fL (7.4-10.4); Platelet Count 270 10x3/uL (130-400); RBC Distribution Width 12.7 % (11.5-14.5); Red Blood Cell (RBC) Count 3.59 mill/uL (4.70-6.10); White Blood Cell (WBC) Count 9.2 10x3/uL (4.8-10.8)
[2022-10-17 11:32] LABS: Anion Gap 10 mmol/L (10-20); BUN (Urea Nitrogen) 19 mg/dL (8.4-25.7); Calc. Creatinine Clearance 75 mL/min (70-130); Calcium 8.7 mg/dL (7.8-10.44); Carbon Dioxide 25 mmol/L (23-31); Chloride 102 mmol/L (98-107); Estimated GFR 83; Glucose 211 mg/dL (83-110); Sodium 133 mmol/L (136-145)
[2022-10-17] MEDS: HumaLOG 300 UNITS/3 ML VIAL SC PRN ×2 (18:37→21:22)
[2022-10-17] MEDS: Atorvastatin Calcium 20 MG TAB PO SCH (21:20)
[2022-10-17] MEDS: Famotidine 20 MG TAB PO SCH (21:20)
[2022-10-17] MEDS: Acetaminophen 325 MG TAB PO PRN (21:21)
[2022-10-18 07:45] VITALS: TEMP 98.1
[2022-10-18] MEDS: Aspirin 81 mg Enteric Coated Tablet PO SCH (08:35)
[2022-10-18] MEDS: Senokot S 8.6-50 MG TAB PO SCH (08:35)
[2022-10-18] MEDS: Insulin Glargine 30 UNITS/0.3 ML VIAL SC SCH (08:35)
[2022-10-18] MEDS: Polyethylene Glycol 3350 17 GM Packet PO SCH (08:35)
[2022-10-18] MEDS: Tamsulosin HCl 0.4 MG CAP PO SCH (08:36)
[2022-10-18] MEDS: Ciprofloxacin 500 MG TAB PO SCH (08:36)
[2022-10-18] MEDS: Cyanocobalamin (Vitamin B-12) 1,000 MCG TAB PO SCH (08:36)
[2022-10-18] MEDS: FLUoxetine HCl 20 MG CAP PO SCH (08:36)
[2022-10-18] MEDS: Amlodipine 10 MG TAB PO SCH ×3 (08:38→09:47)
[2022-10-18] MEDS: Losartan 25 MG TAB PO SCH ×3 (08:38→09:48)
[2022-10-18 08:42] VITALS: BP 121/75
[2022-10-18 09:31] LABS: #Basophils 0.1 thou/uL (0.0-0.2); #Eosinphils 0.2 thou/uL (0.0-0.7); #Neutrophils 6.2 thou/uL (1.40-6.50); %Basophils 0.5 % (0.0-1.0); %Eosinophils 1.9 % (0.0-10.0); %Lymphocytes 19.9 % (21.0-51.0); %Monocytes 11.1 % (0.0-10.0); %Neutrophils 65.9 % (42.0-75.0); Hematocrit 34.9 % (42.0-52.0); Hemoglobin 11.6 g/dL (14.0-18.0); Mean Corpuscular HGB CONC 33.2 g/dL (32.0-36.0); Mean Corpuscular Hemoglobin 32.3 pg (27.0-31.0); Mean Corpuscular Volume 97.2 fl (78.0-98.0); Mean Platelet Volume 10.7 fL (7.4-10.4); Platelet Count 311 10x3/uL (130-400); RBC Distribution Width 12.8 % (11.5-14.5); Red Blood Cell (RBC) Count 3.59 mill/uL (4.70-6.10); White Blood Cell (WBC) Count 9.4 10x3/uL (4.8-10.8)
[2022-10-18 09:54] LABS: Anion Gap 10 mmol/L (10-20); BUN (Urea Nitrogen) 22 mg/dL (8.4-25.7); Calc. Creatinine Clearance 76 mL/min (70-130); Calcium 8.7 mg/dL (7.8-10.44); Carbon Dioxide 23 mmol/L (23-31); Chloride 105 mmol/L (98-107); Estimated GFR 85; Glucose 159 mg/dL (83-110); Sodium 134 mmol/L (136-145)
[2022-10-19] MEDS ORDERED: EXENATIDE 2 MG/0.85 ML FS SCH (09:00)
== END 2022-10-18 10:55 | DRG 871 ==
LOC: ERS 13:12 → T4-B 15:41
PROVIDERS: ADMIT Family Medicine; ATTEND Family Medicine
PROC: 0T9B70Z Drainage of Bladder with Drainage Device, Via Natural or Artificial Opening (ICD-10-PCS; principal; 2022-10-12)
PROC: 3E03329 Introduction of Other Anti-infective into Peripheral Vein, Percutaneous Approach (ICD-10-PCS; 2022-10-12)
PROC: 8E0ZXY6 Isolation (ICD-10-PCS; 2022-10-12)
DX: A41.9 Sepsis, unspecified organism (principal); G93.41 Metabolic encephalopathy; U07.1 COVID-19; N39.0 Urinary tract infection, site not specified; N17.9 Acute kidney failure, unspecified; F03.90 Unspecified dementia, unspecified severity, without behavioral disturbance, psychotic disturbance, mood disturbance, and anxiety; E11.9 Type 2 diabetes mellitus without complications; I10 Essential (primary) hypertension; E78.5 Hyperlipidemia, unspecified; I25.10 Atherosclerotic heart disease of native coronary artery without angina pectoris; N40.0 Benign prostatic hyperplasia without lower urinary tract symptoms; R33.9 Retention of urine, unspecified; K59.00 Constipation, unspecified; Z66 Do not resuscitate; K21.9 Gastro-esophageal reflux disease without esophagitis; Z88.1 Allergy status to other antibiotic agents; Z88.8 Allergy status to other drugs, medicaments and biological substances; Z79.899 Other long term (current) drug therapy; Z79.4 Long term (current) use of insulin; Z79.82 Long term (current) use of aspirin; Z90.49 Acquired absence of other specified parts of digestive tract
CPT/HCPCS: 36415; 36416; 71045; 74176; 80048; 80053; 80306; 80307; 81001; 82805; 83605; 84443; 84484; 85025; 87040; 87077; 87086; 87186; 93005; 96365; 96367; 97139; J0692; J0696; J1650; J1815; J3370-JW; J3490; J7120

== ENCOUNTER 2023-05-04 23:16 | Emergency (ER) | payer MEDICARE ==
[2023-05-05] MEDS ORDERED: Boostrix 0.5 ML (Tdap) VIAL (>/=7 yrs of age) ONE (01:16)
== END 2023-05-05 01:30 | disposition home or self-care (01) ==
LOC: ERS 23:16
DX: S09.90XA Unspecified injury of head, initial encounter (principal); S00.01XA Abrasion of scalp, initial encounter; I10 Essential (primary) hypertension; E11.9 Type 2 diabetes mellitus without complications; I25.10 Atherosclerotic heart disease of native coronary artery without angina pectoris; E78.5 Hyperlipidemia, unspecified; W18.40XA Slipping, tripping and stumbling without falling, unspecified, initial encounter; Z79.82 Long term (current) use of aspirin; Z79.4 Long term (current) use of insulin; Z79.899 Other long term (current) drug therapy
CPT/HCPCS: 36416; 70450; 71045; 72125; 90471; 90715; 93005

== ENCOUNTER 2024-04-22 19:47 | Inpatient (IN) | payer MEDICARE ==
[2024-04-22 21:55] LABS: Bacteria/HPF None Seen HPF (None Seen); Bilirubin Negative (Negative); Blood, Urine Negative (Negative); CAUTI Indications for Culture Fever or rigors; Clarity Clear (Clear); Glucose, Urine (Dipstick) 300 mg/dL (Negative); Ketone, Urine Negative (Negative); Leukocyte Negative Leu/uL (Negative); Nitrite Negative (Negative); Protein, Urine (Dipstick) 20 mg/dL (Neg-Trace); RBC/HPF None Seen HPF (0-3); Specific Gravity, Urine 1.018 (1.002-1.036); Squamous Epithelial None Seen HPF (0-3); Urobilinogen Normal mg/dL (Less than 2); WBC/HPF 0-3 HPF (0-3)
[2024-04-22 21:57] LABS: Urine Culture Reflex No No
[2024-04-22] MEDS ORDERED: Acetaminophen 500 MG TAB ONE (22:27)
[2024-04-22 22:40] LABS: #Basophils 0.06 10x3/uL (0.0-0.2); #Eosinophils Less than 0.03 10x3/uL (0.0-0.7); %Basophils 0.3 % (0.0-1.0); %Eosinophils 0.1 % (0.0-10.0); %Monocytes 6.5 % (0.0-10.0); %Neutrophils 87.4 % (42.0-75.0); Hematocrit 36.4 % (42.0-52.0); Mean Corpuscular Hemoglobin 32.2 pg (27.0-31.0); Mean Corpuscular Volume 97.6 fL (78.0-98.0); Mean Platelet Volume 9.9 fL (7.4-10.4); Platelet Count 313 10x3/uL (130-400); RBC Distribution Width 13.6 % (11.5-14.5); Red Blood Cell (RBC) Count 3.73 mill/uL (4.70-6.10)
[2024-04-22] MEDS ORDERED: Glucagon 1 MG/ML KIT IM PRN (22:41)
[2024-04-22] MEDS ORDERED: Dextrose 5% in Water 1,000 ML IV PRN (22:41)
[2024-04-22] MEDS ORDERED: Dextrose 50% Abboject 50 ML SYRINGE SLOW IVP PRN (22:41)
[2024-04-22] MEDS ORDERED: Ondansetron PF 4 MG/2 ML Vial IVP PRN (22:41)
[2024-04-22] MEDS ORDERED: hydrALAZINE 20 MG/ML VIAL SLOW IVP PRN (22:41)
[2024-04-22] MEDS ORDERED: Morphine 2 MG/ML VIAL SLOW IVP PRN (22:41)
[2024-04-22] MEDS ORDERED: traMADol HCl 50 MG TAB PO PRN (22:41)
[2024-04-22 22:47] LABS: INR-International Normal Ratio 1.2; PTT 28.9 sec (22.9-36.1); Prothrombin Time 15.7 sec (12.0-14.7)
[2024-04-22] MEDS ORDERED: Insulin Lispro 100 UNIT/ML 10 ML VIAL SC PRN (22:57)
[2024-04-22 22:58] LABS: ALT (SGPT) 23 U/L (Less than 45); AST (SGOT) 25 U/L (11-34); Albumin 3.1 g/dL (3.1-4.5); Alkaline Phosphatase 75 U/L (40-110); Anion Gap 15 mmol/L (10-20); BUN (Urea Nitrogen) 15 mg/dL (8.4-25.7); Bilirubin, Total 0.6 mg/dL (0.3-1.2); Calc. Creatinine Clearance 0 mL/min (70-130); Calcium 8.1 mg/dL (7.8-10.44); Carbon Dioxide 19 mmol/L (23-31); Chloride 109 mmol/L (98-107); Estimated GFR 75; Globulin 3.8 g/dL (2.4-3.5); Glucose 199 mg/dL (83-110); Potassium 4.6 mmol/L (3.5-5.1); Protein, Total 6.9 g/dL (5.8-8.1); Sodium 138 mmol/L (136-145)
[2024-04-22] MEDS ORDERED: Ketorolac Tromethamine 30 MG (1 mL) VIAL ONE (23:14)
[2024-04-23 06:30] LABS: #Basophils 0.06 10x3/uL (0.0-0.2); #Eosinophils Less than 0.03 10x3/uL (0.0-0.7); %Basophils 0.4 % (0.0-1.0); %Eosinophils 0.1 % (0.0-10.0); %Lymphocytes 5.6 % (21.0-51.0); %Monocytes 7.6 % (0.0-10.0); %Neutrophils 85.7 % (42.0-75.0); Hematocrit 29.5 % (42.0-52.0); Hemoglobin 9.9 g/dL (14.0-18.0); Mean Corpuscular HGB CONC 33.6 g/dL (32.0-36.0); Mean Corpuscular Hemoglobin 32.6 pg (27.0-31.0); Mean Platelet Volume 10.1 fL (7.4-10.4); Platelet Count 263 10x3/uL (130-400); RBC Distribution Width 13.8 % (11.5-14.5); Red Blood Cell (RBC) Count 3.04 mill/uL (4.70-6.10)
[2024-04-23 06:41] LABS: Anion Gap 9 mmol/L (10-20); BUN (Urea Nitrogen) 15 mg/dL (8.4-25.7); Calc. Creatinine Clearance 0 mL/min (70-130); Carbon Dioxide 23 mmol/L (23-31); Chloride 111 mmol/L (98-107); Estimated GFR 82; Glucose 156 mg/dL (83-110); Sodium 139 mmol/L (136-145)
[2024-04-23] MEDS: Acetaminophen 325 MG TAB PO PRN (11:58)
[2024-04-23] MEDS: Lactulose 20 GM (30 mL) UDCUP PO SCH (11:58)
[2024-04-23] MEDS ORDERED: [UNRECOGNIZED DRUG - OTHER] PO PRN (12:10)
[2024-04-23] MEDS ORDERED: Ondansetron ODT 4 MG TAB PO PRN (12:10)
[2024-04-23] MEDS ORDERED: Diclofenac 1% 50 GM TOPICAL GEL TP PRN (12:10)
[2024-04-23] MEDS ORDERED: MENTHOL TOP PRN (12:10)
[2024-04-23] MEDS ORDERED: Nystatin Powder 15 GM BOT TOP PRN (13:10)
[2024-04-23 14:03] VITALS: BMI 27.6
[2024-04-23] MEDS: Metoprolol Succinate XL 25 MG ER.TAB PO SCH (15:16)
[2024-04-23] MEDS: Amlodipine 5 MG TAB PO SCH (15:17)
[2024-04-23] MEDS: Enoxaparin 40 MG (0.4 mL) SYRINGE SC SCH (15:17)
[2024-04-23] MEDS ORDERED: Polyethylene Glycol 3350 17 GM Packet PO SCH (21:00)
[2024-04-23] MEDS ORDERED: Insulin Glargine 30 UNITS/0.3 ML VIAL SC SCH ×2 (21:00)
[2024-04-23] MEDS: Famotidine 20 MG TAB PO SCH (21:33)
[2024-04-23] MEDS: Atorvastatin Calcium 20 MG TAB PO SCH (21:33)
[2024-04-23] MEDS: Docusate 100 MG CAP PO SCH (21:33)
[2024-04-23] MEDS: Polyethylene Glycol 3350 17 GM Packet PO SCH (21:34)
[2024-04-24 06:13] LABS: #Basophils 0.04 10x3/uL (0.0-0.2); %Basophils 0.5 % (0.0-1.0); %Eosinophils 3.7 % (0.0-10.0); %Lymphocytes 16.6 % (21.0-51.0); %Monocytes 10.6 % (0.0-10.0); %Neutrophils 68.4 % (42.0-75.0); Hematocrit 35.1 % (42.0-52.0); Hemoglobin 11.7 g/dL (14.0-18.0); Mean Corpuscular HGB CONC 33.3 g/dL (32.0-36.0); Mean Corpuscular Volume 95.9 fL (78.0-98.0); Mean Platelet Volume 10.2 fL (7.4-10.4); Platelet Count 258 10x3/uL (130-400); RBC Distribution Width 13.8 % (11.5-14.5); Red Blood Cell (RBC) Count 3.66 mill/uL (4.70-6.10)
[2024-04-24 06:31] LABS: Anion Gap 11 mmol/L (10-20); BUN (Urea Nitrogen) 13 mg/dL (8.4-25.7); Calc. Creatinine Clearance 67 mL/min (70-130); Calcium 8.5 mg/dL (7.8-10.44); Carbon Dioxide 23 mmol/L (23-31); Chloride 109 mmol/L (98-107); Estimated GFR 72; Glucose 87 mg/dL (83-110); Potassium 3.8 mmol/L (3.5-5.1); Sodium 139 mmol/L (136-145)
[2024-04-24] MEDS ORDERED: [UNRECOGNIZED DRUG - OTHER] SC SCH (09:00)
[2024-04-24] MEDS ORDERED: BREXPIPRAZOLE 3 MG PO SCH (09:00)
[2024-04-24] MEDS ORDERED: EXENATIDE MICROSPHERES 2 MG/0.85 ML SC SCH (09:00)
[2024-04-24] MEDS ORDERED: Brexpiprazole [Rexulti] 0.5 MG Tablet PO SCH (09:00)
[2024-04-24] MEDS: Amlodipine 5 MG TAB PO SCH (10:35)
[2024-04-24] MEDS: Aspirin 81 mg Enteric Coated Tablet PO SCH (10:35)
[2024-04-24] MEDS: Cyanocobalamin (Vitamin B-12) 1,000 MCG TAB PO SCH (10:35)
[2024-04-24] MEDS: Multivit, Therapeutic 1 TAB PO SCH (10:36)
[2024-04-24] MEDS: FLUoxetine HCl 20 MG CAP PO SCH (10:36)
[2024-04-24] MEDS: Metoprolol Succinate XL 25 MG ER.TAB PO SCH (10:36)
[2024-04-24] MEDS: Losartan 25 MG TAB PO SCH (10:36)
[2024-04-24] MEDS: Tamsulosin HCl 0.4 MG CAP PO SCH (10:37)
[2024-04-24] MEDS: Enoxaparin 40 MG (0.4 mL) SYRINGE SC SCH (10:48)
[2024-04-24] MEDS ORDERED: GoLYTELY 4,000 ml Bottle PO SCH (11:00)
[2024-04-24] MEDS ORDERED: MD-Gastroview 120 ML BOT ONE (11:06)
[2024-04-24 23:53] VITALS: BMI 27.6
[2024-04-25 05:14] LABS: #Basophils 0.03 10x3/uL (0.0-0.2); %Basophils 0.3 % (0.0-1.0); %Eosinophils 1.9 % (0.0-10.0); %Lymphocytes 13.6 % (21.0-51.0); %Monocytes 11.1 % (0.0-10.0); %Neutrophils 72.8 % (42.0-75.0); Hematocrit 34.6 % (42.0-52.0); Hemoglobin 11.8 g/dL (14.0-18.0); Mean Corpuscular HGB CONC 34.1 g/dL (32.0-36.0); Mean Corpuscular Volume 93.8 fL (78.0-98.0); Mean Platelet Volume 10.3 fL (7.4-10.4); Platelet Count 262 10x3/uL (130-400); RBC Distribution Width 13.9 % (11.5-14.5); Red Blood Cell (RBC) Count 3.69 mill/uL (4.70-6.10)
[2024-04-25 05:42] LABS: Anion Gap 10 mmol/L (10-20); BUN (Urea Nitrogen) 18 mg/dL (8.4-25.7); Calc. Creatinine Clearance 83 mL/min (70-130); Calcium 8.3 mg/dL (7.8-10.44); Carbon Dioxide 22 mmol/L (23-31); Chloride 112 mmol/L (98-107); Estimated GFR 87; Glucose 122 mg/dL (83-110); Potassium 3.3 mmol/L (3.5-5.1); Sodium 141 mmol/L (136-145)
[2024-04-25] MEDS: Potassium Chloride 20 MEQ TAB PO SCH (09:26)
[2024-04-25 11:43] VITALS: BP 149/77; TEMP 97.3
[2024-04-26] MEDS ORDERED: FLU (Fluad Triv) TS24-25 (65UP)/MF59C/PF 45 MCG/0.5 ML Syringe IM ONE (09:00)
== END 2024-04-25 14:56 | DRG 177 ==
LOC: ERS 19:47 → SURG B 22:41
PROVIDERS: ADMIT Surgery; ATTEND Internal Medicine
DX: U07.1 COVID-19 (principal); S72.011A Unspecified intracapsular fracture of right femur, initial encounter for closed fracture; J98.11 Atelectasis; I10 Essential (primary) hypertension; F03.90 Unspecified dementia, unspecified severity, without behavioral disturbance, psychotic disturbance, mood disturbance, and anxiety; Z66 Do not resuscitate; Y92.121 Bathroom in nursing home as the place of occurrence of the external cause; J11.1 Influenza due to unidentified influenza virus with other respiratory manifestations; R29.6 Repeated falls; K59.00 Constipation, unspecified; N40.0 Benign prostatic hyperplasia without lower urinary tract symptoms; K21.9 Gastro-esophageal reflux disease without esophagitis; D64.9 Anemia, unspecified; I25.10 Atherosclerotic heart disease of native coronary artery without angina pectoris; E11.9 Type 2 diabetes mellitus without complications; Z85.828 Personal history of other malignant neoplasm of skin; Z79.899 Other long term (current) drug therapy; Z91.148 Patient's other noncompliance with medication regimen for other reason; Z99.3 Dependence on wheelchair; W18.30XA Fall on same level, unspecified, initial encounter
CPT/HCPCS: 36415; 36416; 51701; 70450; 71045; 71250; 72125; 72170; 74018; 74176; 74250; 80048; 80053; 81001; 83605; 85025; 85610; 85730; 86850; 86900; 86901; 87040; 87086; 87149; 87428; 93005; 96361; 96374; G0390; J1650; J1885; Q9963